=== PATIENT | male | born 1950 | race Caucasian/White ===

== ENCOUNTER 2021-07-25 00:37 | Inpatient (IN) | payer MEDICARE, OTHER ==
[~2021-07-25] VITALS: Ht 180.3 cm; Wt 81.5 kg
[~2021-07-25 00:37] MED LIST: AMLO2.5T96 PO; ESCI20TA87 PO; FINA5TAB41 PO; LAMO100 PO; TRAZ-184 PO
[2021-07-25 02:24] LABS: BASOPHILS % (AUTO) 0.4 % (0.0-2.0); EOSINOPHILS % (AUTO) 8.1 % (1.0-6.0); HEMATOCRIT 41.2 % (41-53); HEMOGLOBIN 13.9 g/dL (13.5-17.5); LYMPHOCYTES # (AUTO) 0.9 K/uL (1.0-4.8); LYMPHOCYTES % (AUTO) 15.5 % (22.0-44.0); MEAN CORPUSCULAR HEMOGLOBIN 29.2 pg (26.0-34.0); MEAN CORPUSCULAR HGB CONC 33.8 G/dL (31.0-37.0); MEAN CORPUSCULAR VOLUME 87 fL (80-100); MONOCYTES # (AUTO) 0.8 K/uL (0.1-1.0); MONOCYTES % (AUTO) 13.9 % (2.0-9.0); NEUTROPHILS # (AUTO) 3.6 K/uL (1.8-7.7); NEUTROPHILS % (AUTO) 62.1 % (40.0-70.0); PLATELET COUNT (AUTO) 234 K/uL (150-450); RED BLOOD CELL COUNT(AUTO) 4.76 MIL/uL (4.50-5.90); RED CELL DISTRIBUTION WIDTH 14.6 % (11.5-14.5)
[2021-07-25] MEDS ORDERED: AMLO2.5T29 PO (02:30)
[2021-07-25] MEDS ORDERED: BACL10TA PO (02:30)
[2021-07-25] MEDS ORDERED: PREG200C28 PO (02:30)
[2021-07-25] MEDS ORDERED: TRAZ-186 PO (02:30)
[2021-07-25] MEDS ORDERED: CLON1TAB23 PO (02:30)
[2021-07-25] MEDS ORDERED: METH-521 PO (02:30)
[2021-07-25] MEDS ORDERED: MIRT-92 PO (02:30)
[2021-07-25] MEDS ORDERED: ESCI10 PO (02:30)
[2021-07-25 02:32] LABS: AMPHET/METH SCREEN,URINE NEGATIVE (NEGATIVE); BARBITURATE SCREEN, URINE NEGATIVE (NEGATIVE); BENZODIAZEPINES SCREEN,URINE NEGATIVE (NEGATIVE); CANNABINOID SCREEN,URINE NEGATIVE (NEGATIVE); COCAINE SCREEN,URINE NEGATIVE (NEGATIVE); METHADONE SCREEN, URINE NEGATIVE (NEGATIVE); OPIATE SCREEN,URINE NEGATIVE (NEGATIVE); PHENCYCLIDINE SCREEN,URINE NEGATIVE (NEGATIVE)
[2021-07-25 02:37] LABS: ALANINE AMINOTRANSFERASE 29 U/L (12-78); ALBUMIN 3.3 g/dL (3.4-5.0); ALKALINE PHOSPHATASE 107 U/L (46-116); ASPARTATE AMINOTRANSFERASE 19 U/L (15-37); BILIRUBIN,TOTAL 0.2 mg/dL (0.1-1.0); CALCIUM, TOTAL 8.7 mg/dL (8.8-10.5); CHLORIDE 104 mmol/L (98-107); CREATININE 0.69 mg/dL (0.60-1.30); GLUCOSE,RANDOM 95 mg/dL (70-110); POTASSIUM 3.3 mmol/L (3.5-5.1); SODIUM SERUM 141 mmol/L (136-145); TOTAL PROTEIN, SERUM 6.4 g/dL (6.4-8.2); UREA NITROGEN, BLOOD 17 mg/dL (7-18)
[2021-07-25] MEDS ORDERED: HALOPERIDOL 5 MG TABLET PO PRN (02:45)
[2021-07-25 02:47] LABS: ANION GAP 9 mmol/L (8-16); CARBON DIOXIDE 28 mmol/L (22-29); GLOMERULAR FILTR. RATE CALC > 60 mL/min (>60)
[2021-07-25 03:16] LABS: COVID AG,FIA SOURCE NASOPHARYNGEAL
[2021-07-25 03:24] LABS: APPEARANCE,URINE CLEAR (CLEAR); BILIRUBIN,URINE NEGATIVE (NEGATIVE); GLUCOSE, URINE (UA) NEGATIVE (NEGATIVE); KETONES,URINE NEGATIVE (NEGATIVE); LEUKOCYTE ESTERASE ,URINE NEGATIVE (NEGATIVE); NITRATE,URINE NEGATIVE (NEGATIVE); OCCULT BLOOD,URINE NEGATIVE (NEGATIVE); PROTEIN,URINE NEGATIVE (NEGATIVE); SPECIFIC GRAVITIY, URINE 1.012 (1.003-1.030); UROBILINOGEN,URINE <=1.0 mg/dL (<=1.0)
[2021-07-25 11:43] VITALS: BP 152/92
[2021-07-25] MEDS ORDERED: NITROGLYCERIN 2% (1 GM=INCH) PACKET TP PRN (14:00)
[2021-07-25] MEDS: PROPRANOLOL HCL 20 MG TABLET PO SCH (16:38)
[2021-07-25 16:46] VITALS: BP 149/75
[2021-07-25] MEDS ORDERED: OMEPRAZOLE 20 MG CAPSULE PO PRN (17:15)
[2021-07-25] MEDS ORDERED: BACITRACIN 28 GM OINTMENT TP PRN (17:15)
[2021-07-25] MEDS ORDERED: MAGNESIUM HYDROXIDE SUSPENSION 30 ML UDCUP PO PRN (17:15)
[2021-07-25] MEDS ORDERED: ACETAMINOPHEN 325 MG TABLET PO PRN (17:15)
[2021-07-25] MEDS ORDERED: ALBUTEROL SULFATE HFA 90 MCG/PUFF 8 GM INHALER IH PRN (17:15)
[2021-07-25] MEDS ORDERED: PETROLATUM,WHITE 28 GM JELLY TP PRN (17:15)
[2021-07-25] MEDS ORDERED: LOPERAMIDE HCL 2 MG CAPSULE PO PRN (17:15)
[2021-07-25] MEDS ORDERED: POTASSIUM CHLORIDE 20 MEQ ER TABLET PO ONE (17:15)
[2021-07-25] MEDS ORDERED: CloNIDine HCL 0.1 MG TABLET PO PRN (17:15)
[2021-07-25] MEDS ORDERED: ONDANSETRON HCL 4 MG TABLET PO PRN (17:15)
[2021-07-25] MEDS ORDERED: DOCUSATE SODIUM 100 MG CAPSULE PO PRN (17:15)
[2021-07-25] MEDS ORDERED: MAG HYDROX/AL HYDROX/SIMETH ES 30 ML SUSPENSION UDCUP PO PRN (17:15)
[2021-07-25] MEDS ORDERED: BENZOCAINE/MENTHOL LOZENGE PO PRN (17:15)
[2021-07-25] MEDS: ZOLPIDEM TARTRATE 10 MG TABLET PO PRN (20:48)
[2021-07-26 01:30] VITALS: BP 149/84
[2021-07-26] MEDS: LORazepam 2 MG TABLET PO PRN ×2 (01:35→19:01)
[2021-07-26] MEDS: IBUPROFEN 600 MG TABLET PO PRN (01:35)
[2021-07-26 09:15] VITALS: BP 154/80
[2021-07-26] MEDS: TAMSULOSIN HCL 0.4 MG CAPSULE PO SCH (10:12)
[2021-07-26] MEDS: PROPRANOLOL HCL 20 MG TABLET PO SCH ×2 (10:12→16:40)
[2021-07-26] MEDS: AmLODIPine BESYLATE 2.5 MG TABLET PO SCH (10:12)
[2021-07-26] MEDS: ESCITALOPRAM OXALATE 10 MG TABLET PO SCH (10:12)
[2021-07-26 16:00] VITALS: BP 122/62
[2021-07-26] MEDS ORDERED: METH20TA45 PO (18:53)
[2021-07-26] MEDS: TraZODone HCL 100 MG TABLET PO SCH (20:42)
[2021-07-26] MEDS: ZOLPIDEM TARTRATE 10 MG TABLET PO PRN (22:35)
[2021-07-27] VITALS (8 sets, daily range): BP systolic 115–165; BP diastolic 63–91
[2021-07-27] MEDS: AmLODIPine BESYLATE 2.5 MG TABLET PO SCH (08:58)
[2021-07-27] MEDS: PROPRANOLOL HCL 20 MG TABLET PO SCH ×2 (08:58→17:06)
[2021-07-27] MEDS: TAMSULOSIN HCL 0.4 MG CAPSULE PO SCH (08:59)
[2021-07-27] MEDS: ESCITALOPRAM OXALATE 10 MG TABLET PO SCH (08:59)
[2021-07-27] MEDS: LORazepam 2 MG TABLET PO PRN (18:35)
[2021-07-27] MEDS: TraZODone HCL 100 MG TABLET PO SCH (20:24)
[2021-07-27] MEDS: ZOLPIDEM TARTRATE 10 MG TABLET PO PRN (21:11)
[2021-07-28 00:10] VITALS: BP 128/67
[2021-07-28] MEDS: LORazepam 2 MG TABLET PO PRN ×3 (00:14→14:30)
[2021-07-28] MEDS: IBUPROFEN 600 MG TABLET PO PRN (06:09)
[2021-07-28] MEDS: TAMSULOSIN HCL 0.4 MG CAPSULE PO SCH (08:24)
[2021-07-28] MEDS: PROPRANOLOL HCL 20 MG TABLET PO SCH ×2 (08:25→16:09)
[2021-07-28] MEDS: AmLODIPine BESYLATE 2.5 MG TABLET PO SCH (08:26)
[2021-07-28] MEDS: ESCITALOPRAM OXALATE 10 MG TABLET PO SCH (08:26)
[2021-07-28] MEDS ORDERED: CYANOCOBALAMIN 100 MCG TABLET PO SCH (09:00)
[2021-07-28] MEDS ORDERED: ASCORBIC ACID 500 MG TABLET PO SCH (09:00)
[2021-07-28 10:13] VITALS: BP 139/94
[2021-07-28 16:37] VITALS: BP 135/81
[2021-07-28] MEDS ORDERED: ASCO500C18 PO (16:59)
[2021-07-28] MEDS ORDERED: CYAN100T45 PO (17:00)
[2021-07-28] MEDS ORDERED: TAMS-13 PO (17:02)
[2021-07-28] MEDS ORDERED: AMLO2.5T96 PO (17:04)
== END 2021-07-28 17:45 | disposition home or self-care (01) | DRG 881 ==
LOC: EMS 00:41 → 3EX 10:51
PROVIDERS: ADMIT Psychiatry & Neurology Psychiatry; ATTEND Psychiatry & Neurology Psychiatry
DX: F32.9 Major depressive disorder, single episode, unspecified (principal); N40.0 Benign prostatic hyperplasia without lower urinary tract symptoms; I10 Essential (primary) hypertension; E78.5 Hyperlipidemia, unspecified; Z20.822 Contact with and (suspected) exposure to COVID-19; F41.9 Anxiety disorder, unspecified; F90.9 Attention-deficit hyperactivity disorder, unspecified type; G47.00 Insomnia, unspecified; K59.00 Constipation, unspecified; M54.2 Cervicalgia; E87.6 Hypokalemia; Z89.511 Acquired absence of right leg below knee
CPT/HCPCS: 80053; 81003; 84132; 85025; 99285; G0378; G0480